=== PATIENT | female | born 1980 | race Caucasian/White ===

== ENCOUNTER 2018-03-31 00:42 | Emergency (ER) | payer BC, SELFPAY ==
[2018-03-31 00:43] VITALS: BP 167/114; PULSE 90; RESP 18; TEMP 36.4; O2SAT 98; BMI 51.5
[2018-03-31] MEDS: 0.9% Normal Saline 1,000 ML 999 ML IV (01:14)
[2018-03-31] MEDS: proCHLORPERazine 10 MG/2 ML Vial IV (01:14)
[2018-03-31] MEDS: DiphenhydrAMINE 50 MG/ML Syringe 25 MG IV (01:14)
--- NOTE | 2018-03-31 02:14 | ED.DCSUM_ITS ---
- ER Visit Summary Date of Service: 03/31/18 Chief Complaint: Headache History of Present Illness: The patient is a 37 F nontraumatic frontal headache with photophobia since this morning. No falls or head injuries. Nausea without vomiting. History of similar. Denies any increased stress. No fevers. No neck pain. Physical Examination: General: Alert and oriented ?3, HEENT: Normocephalic, atraumatic. Moist mucosa membranes. Extraocular muscles intact. No nystagmus Neck: supple, nontender. No meningismus Cardiovascular: Regular rate and rhythm, no murmurs Respiratory: Normal breath sounds, symmetric, no distress Abdomen: Soft, nontender, nondistended Extremities: Nontender, no edema, pulses intact ?4 Neuro: no focal neurological deficits. Cranial nerves II through XII intact. Test Results: [] Emergency Department Course and Treatment: Patient vitals stable, no meningismus. Treated with migraine regimen of Compazine and Benadryl and IV fluids. Reevaluation headache improved she had mild restlessness of lower extremities. No agitation. Discussed with patient can take a Benadryl when she goes home if she is unable to sleep. Patient understands and agrees with plan. Treatment Plan: [] Disposition: Discharge Impression: Migraine headache This note was generated with [employer] dictation software. It may contain incorrect words, spelling, and punctuation that were not noted in review of the chart prior to signing ED Disposition - Plan for ED Patient: Disposition: Home or Assisted Living Chief Complaint: Headache Diagnosis: Migraine headache Instructions: ED Headache Migraine Referrals: Steph Murillo MD [Primary Care Provider] - 3-5 Days
[2018-03-31 02:20] VITALS: BP 140/67; PULSE 66; RESP 18; O2SAT 97
== END 2018-03-31 02:21 | disposition home or self-care (01) ==
PROVIDERS: Emergency Provider Emergency Medicine; Family Provider Internal Medicine; PCP Internal Medicine
DX: G43.909 Migraine, unspecified, not intractable, without status migrainosus (principal); Z72.0 Tobacco use
CPT/HCPCS: 96361; 96374; 96375; 99284

== ENCOUNTER 2018-05-19 20:31 | Emergency (ER) | payer BC, SELFPAY ==
[2018-05-19 20:34] VITALS: BP 124/86; PULSE 84; RESP 17; TEMP 36.3; O2SAT 96; BMI 50.6
--- NOTE | 2018-05-19 22:04 | ED.DCSUM_ITS ---
- ER Visit Summary Date of Service: 05/19/18 Chief Complaint: Right upper molar pain History of Present Illness: The patient is a 38 F no significant past medical history. Patient states she has had right upper molar dental pain for last several days. Denies any trauma. No fever. No facial swelling. Physical Examination: Well-appearing female vital signs are stable afebrile. HEENT exam shows several areas of dental decay and cavities. Her right upper last molar is severely decayed and about half of it is missing with a large cavity. There is no periapical abscess. No trismus. There is tenderness to palpation. There is no facial swelling. Airway is intact. No trouble swallowing or breathing. Neck nontender no lymphadenopathy. Lungs clear to auscultation. Heart regular rhythm no murmur. Otherwise exam unremarkable. Test Results: None Emergency Department Course and Treatment: Marcaine dental block was performed with good results. Patient tolerated well. Given 2 [place] here. Treatment Plan: Motrin for pain. Michael Burton Follow-up with her dentist as soon as possible. Disposition: Discharge Impression: Acute dental pain right upper molar secondary to cavity and decay This note was generated with [employer] dictation software. It may contain incorrect words, spelling, and punctuation that were not noted in review of the chart prior to signing ED Disposition - Plan for ED Patient: Chief Complaint: Dental Referrals: Steph Murillo MD [Primary Care Provider] -
--- NOTE | 2018-05-19 22:04 | ED.DEP ---
ED Disposition - Plan for ED Patient: Disposition: Home or Assisted Living Chief Complaint: Dental Instructions: ED Tooth Pain, ED Cavity Dental Prescriptions: Penicillin Vk [Pen-Vee K 250MG] 250 mg PO 4X/DAY #30 tab Referrals: Donna Oliva [NON-STAFF] - Additional Instructions: Motrin for pain 6-800 mg 3-4 times a day. Ice to your jaw. Follow-up with a dentist as soon as possible. Next Penicillin 4 times a day.
[2018-05-19] MEDS: HYDROcodone Bitartrate/Apap 5/325 Tablet PO (22:15)
[2018-05-19 22:17] VITALS: BP 136/78; PULSE 81; RESP 20; O2SAT 97
[2018-05-19] MEDS: Bupivacaine 0.5%/Epi 1.8 ML Syringe INFILT (22:17)
== END 2018-05-19 22:19 | disposition home or self-care (01) ==
PROVIDERS: Emergency Provider Emergency Medicine; Family Provider Internal Medicine; PCP Internal Medicine
DX: K02.9 Dental caries, unspecified (principal); K08.89 Other specified disorders of teeth and supporting structures
CPT/HCPCS: 64402; 99283

== ENCOUNTER 2019-04-17 08:19 | Observation (INO) | payer BC, SELFPAY ==
[2019-04-17 08:20] VITALS: BP 160/100; PULSE 72; RESP 16; TEMP 36.7; O2SAT 98; BMI 48.9
[2019-04-17] MEDS: Ondansetron 4 MG/2 ML Vial IV (08:55)
[2019-04-17] MEDS: 0.9% Normal Saline 1,000 ML 1000 ML IV (08:55)
[2019-04-17] MEDS: Meclizine HCl 25 MG Tablet PO (09:13)
--- NOTE | 2019-04-17 09:18 | ED.VISSUMM ---
- ER Visit Summary Date of Service: 04/17/19 Chief Complaint: Vertigo History of Present Illness: The patient is a [address] Onofre. Patient reports approximately 30 minutes ago while walking around she had the abrupt onset of vertigo. She reports that this comes and goes. When it comes on she becomes diaphoretic and nauseated. She is vomited 4 times. No blood or emesis. She denies ear pain. No ringing or roaring in her ears. No change in her hearing. No slurred speech. No double vision. No headache. No numbness or weakness. Physical Examination: Vitals: Stable. Afebrile. General: Well-nourished and well-developed. Head: Normocephalic atraumatic. HEENT: TMs are within normal limits bilaterally. Neck: Supple, no lymphadenopathy. No JVD. Nontender. Cardiovascular: Regular rate and rhythm. No murmurs. Respiratory: No respiratory distress. Clear to auscultation bilaterally. Abdominal: Soft, nontender, nondistended, normal bowel sounds. No guarding, rebound, or peritoneal signs. Back: Nontender. Extremities: Nontender, no edema. Skin: Normal color, no rash. Neurologic: Alert and oriented ?3. Cranial nerves II through XII are intact. Normal strength and sensation. Nystagmus with the fast component to the left. Psych: Normal affect. Test Results: test is negative. CT brain shows no acute disease. Emergency Department Course and Treatment: Patient had an IV placed. She was given Zofran and a liter of normal saline. She was given Antivert p.o. she has had no relief. She was given a dose of Ativan IV. She and her talked about the fact that she has had a history of aura without migraine. She was given Toradol, Reglan, and Benadryl IV. She is still not had relief. I did discuss the possibility of an Jason maneuver with the patient and she has refused this. Treatment Plan: Patient remains very symptomatic. She is not able to walk. She will be admitted to the hospital for further evaluation and treatment. Disposition: Admitted in stable condition. Impression: 1. Vertigo, peripheral. This note was generated with [employer] software. It may contain incorrect words, spelling, and punctuation that were not noted in review of the chart prior to signing ED Disposition - Plan for ED Patient: Referrals: Steph Murillo MD [Primary Care Provider] -
[2019-04-17 09:21] VITALS: BP 113/67; PULSE 64; RESP 13; O2SAT 99
[2019-04-17 10:00] LABS: Internal QC Validated? YES +Cl - CLEAR BKGD; Pregnancy, Serum, hCG Quali. NEGATIVE Negative
--- NOTE | 2019-04-17 10:55 | CT_ITS ---
STUDY: CT BRAIN WITHOUT CONTRAST REASON FOR EXAM: Female, 38 years old. Acute onset of vertigo. RADIATION DOSAGE (If Supplied By Facility): CTDIvol = ( 44.99 ) mGy, DLP = ( 796.11 ) mGycm TECHNIQUE: Transaxial CT imaging of the brain was performed without administration of intravenous contrast material. Individualized dose optimization techniques were used for this CT. COMPARISON: No relevant priors. FINDINGS: Normal soft tissue structures. Normal calvarium. Normal size ventricles and extra-axial spaces for the patient's age. Normal white matter tracts of the cerebral hemispheres. Normal basal ganglia and thalami. Normal brainstem. Normal cerebellum. There is no intracranial hemorrhage. There are no findings of an acute ischemic infarction. Minimal mucosal thickening of the right maxillary sinus. CT/Brain/Head without Contrast IMPRESSION: Normal unenhanced CT scan of the brain. Electronically Signed: Darnell Monroe, at 12:16 EDT , Service support ,
[2019-04-17 11:15] VITALS: BP 136/79; PULSE 63; RESP 18; O2SAT 99
[2019-04-17] MEDS: DiphenhydrAMINE 50 MG/ML Syringe 25 MG IV (11:16)
[2019-04-17] MEDS: LORazepam 2 MG/ML Syringe 1 MG IV (11:17)
[2019-04-17] MEDS: Ketorolac 30 MG/ML Syringe IV (11:18)
[2019-04-17] MEDS: Metoclopramide 10 MG/2 ML Vial IV (11:19)
--- NOTE | 2019-04-17 12:54 | NURSING ---
314 OBS VERTIGO SEMENTI
[2019-04-17 13:02] VITALS: BP 141/82; PULSE 67; RESP 16; O2SAT 97
[2019-04-17 13:34] VITALS: BMI 49.0
[2019-04-17 13:36] VITALS: BMI 49.0
[2019-04-17 14:00] VITALS: BP 143/89; PULSE 65; RESP 18; TEMP 36.6; O2SAT 98
[2019-04-17] MEDS: Lactated Ringers 1,000 ML 125 ML IV ×2 (14:00→22:21)
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
[2019-04-17 20:26] VITALS: BP 146/87; PULSE 66; RESP 18; TEMP 36.8; O2SAT 99
[2019-04-18 02:45] VITALS: BP 121/70; PULSE 76; RESP 18; TEMP 36.8; O2SAT 97
[2019-04-18] MEDS: Lactated Ringers 1,000 ML 125 ML IV (06:32)
[2019-04-18 06:38] LABS: Hematocrit 37.4 % (37-47); Hemoglobin 12.4 g/dl (12.0-15.0); Mean Corp Hgb Conc 33.2 g/gl (32-36); Mean Corpuscular Hgb 31.2 pg (27.0-32.0); Mean Platelet Vol. 10.6 fl (6.2-12.0); Platelet Count 265 K/mm3 (150-450); RBC Distribution Width CV 13.5 % (11.6-14.6); RBC Distribution Width SD 44.9 fl (35.1-43.9); Red Blood Count 3.98 M/mm3 (4.2-5.4); White Blood Count 13.2 K/mm3 (4.4-11.0)
[2019-04-18 06:42] LABS: Scan Indicated on CBC? Y/N NO
[2019-04-18 06:56] LABS: ALB/GLOB Ratio 0.9 RATIO (0.9-2.4); AST(SGOT) 17 U/L (15-37); Alanine Aminotransfer ALT/SGPT 25 U/L (13-56); Albumin, Serum 2.8 g/dL (3.2-5.0); Alkaline Phosphatase 88 U/L (45-117); Anion Gap 9 (5-15); BUN 9 mg/dL (7-18); BUN/Creat Ratio 13.7 RATIO (10-20); Calcium,Total 8.3 mg/dL (8.5-10.1); Chloride 109 mmol/L (98-107); Cholesterol 179 mg/dL (200); Creatinine, Serum 0.66 mg/dL (0.55-1.02); EST Glomerular Filtration Rate 106 mL/min (>60); Est Glom Filt Rate - Afr Amer 128 mL/min (>60); Estimated Creatinine Clearance 98.82 ml/min; Globulin 3.1 g/dL (2.2-4.2); Glucose 89 mg/dL (74-106); High Density Lipoprotein 33 mg/dL; Potassium 3.7 mmol/L (3.5-5.1); Protein, Total 5.9 g/dL (6.4-8.2); Sodium Level 142 mmol/L (136-145); Triglycerides 110 mg/dL; Very Low Density Lipoprotein 22 mg/dL (5-40)
[2019-04-18 09:37] VITALS: BP 132/78; PULSE 71; RESP 16; TEMP 36.7; O2SAT 96
[2019-04-18] MEDS: Enoxaparin 40 MG/0.4 ML Syringe SC (09:59)
--- NOTE | 2019-04-18 11:35 | PCM.WORK.EX ---
Work/School Excuse Please excuse this person from:: Work From: 04/17/19 through: 04/22/19
--- NOTE | 2019-04-18 11:36 | DCINST_ITS ---
- Discharge Diagnoses Current Active Problems: Current Active and Chronic Problems Acute onset of severe vertigo (Acute) Morbid obesity with BMI of 45.0-49.9, adult (Chronic) History of migraine with aura (Chronic) Tobacco dependence (Chronic) You will use the following diet at home:: No restrictions Your food should be the consistency of: Regular Your liquids should be the consistency of: Regular/Thin Discharge Activity: - - May not drive while taking Valium. Avoid activities bryanna require you to change head position quickly. Stay well hydrated. Return to work on:: 04/23/19 May resume sexual activity in: No Restrictions Call your doctor if you observe: Fever of 101 or Higher, - - recurrent nausea or vomiting, increasing vertigo and difficulty walking Instructions: The Inner Ear: Understanding the Balance System, Inner Ear Problems: Causes of Dizziness (Vertigo), Tips for Quitting Smoking (Cardiovascular), Why Do You Smoke?, Planning to Quit Smoking, Getting Support for Quitting Smoking Additional Instructions: 1. take the valium 3 times a day for the next 48 hours and after that you can take every 6 hours as needed for vertigo. 2. I have given you a prescription for Phenergan tablets. This medication is for nausea. It makes you sleepy so do not drive while taking Phenergan or Valium. 3. I am giving you a referral to go to [employer] for vestibular training. 4. No work unitil Tuesday. 5. your lab all looked pretty good. 6. It would be in your best interest to quit smoking. I have given you some literature to read about quitting and help available if you are unable to quit on your own........you want to live to see your grandbabies! 7. I faxed your prescriptions to the pharmacy in the hospital so you would have them in your hand when you leave the hospital so you don't have to stop on the way home. 8.. Pleasure meeting you......you have a great personality! Pending Tests on Discharge: none Allergies/Adverse Reactions: Allergies No Known Allergies Allergy (Verified 04/17/19 13:44) Medications to take at Discharge Diazepam [Valium] 2 mg PO TID PRN 7 Days #15 tablet 04/18/19 proMETHazine tablet [Phenergan tablet] 25 mg PO Q6H PRN PRN #12 tab 04/18/19 The following prescriptions were given: proMETHazine tablet [Phenergan tablet] 25 mg PO Q6H PRN PRN #12 tab PRN Reason: nausea and/or vomiting Transmission Status: Pending to [facility] Diazepam [Valium] 2 mg PO TID PRN 7 Days #15 tablet Transmission Status: Sent to [facility] Orders to be completed after discharge: Physical Therapy Evaluation Location: None Selected Primary Care Physician: Steph Murillo MD [STAFF PHYSICIAN] - Test Results: Test results from this visit will be discussed in further detail at your follow- up appointment, if applicable. Please Follow Up With: Yanira Onofre MD When: has an appt coming up Proposed Discharge Date: 04/18/19
--- NOTE | 2019-04-18 11:47 | DS.PCM_ITS ---
Discharge Date and Diagnosis - Problem List Patient Problems: Active and Suspected Problems Acute onset of severe vertigo (Acute) Date of Admission: 04/17/19 Date of Discharge: 04/18/19 - Primary Discharge Diagnosis Active and Suspected Problems Acute onset of severe vertigo (Acute) due to BPPV BPPV - Secondary Discharge Diagnosis Chronic Problems Morbid obesity with BMI of 45.0-49.9, adult (Chronic) History of migraine with aura (Chronic) Tobacco dependence (Chronic) Hospital Course and Treatment Imaging Results: Clinical Impression(s) from Imaging Studies Brain CT 04/17/19 10:55 IMPRESSION: Normal unenhanced CT scan of the brain. Electronically Signed: Darnell Monroe, at 12:16 EDT , Service support , Laboratory Tests 04/18/19 04/18/19 04/17/19 Range/Units 05:36 05:36 09:35 WBC 13.2 H (4.4-11.0) K/mm3 RBC 3.98 L (4.2-5.4) M/mm3 Hgb 12.4 (12.0-15.0) g/dl Hct 37.4 (37-47) % MCV 94.0 (81-99) fL MCH 31.2 (27.0-32.0) pg MCHC 33.2 (32-36) g/gl RDW 13.5 (11.6-14.6) % RDW Differential 44.9 H (35.1-43.9) fl Plt Count 265 (150-450) K/mm3 MPV 10.6 (6.2-12.0) fl Sodium 142 (136-145) mmol/L Potassium 3.7 (3.5-5.1) mmol/L Chloride 109 H (98-107) mmol/L Carbon Dioxide 24.0 (21.0-32.0) mmol/L Anion Gap 9 (5-15) BUN 9 (7-18) mg/dL Creatinine 0.66 (0.55-1.02) mg/dL Estim Creat Clear Calc 98.82 ml/min Est GFR (MDRD) Af Amer 128 (>60) mL/min Est GFR (MDRD) Non-Af 106 (>60) mL/min BUN/Creatinine Ratio 13.7 (10-20) RATIO Glucose 89 (74-106) mg/dL Calcium 8.3 L (8.5-10.1) mg/dL Total Bilirubin 0.30 (0.20-1.00) mg/dL AST 17 (15-37) U/L ALT 25 (13-56) U/L Alkaline Phosphatase 88 (45-117) U/L Total Protein 5.9 L (6.4-8.2) g/dL Albumin 2.8 L (3.2-5.0) g/dL Globulin 3.1 (2.2-4.2) g/dL Albumin/Globulin Ratio 0.9 (0.9-2.4) RATIO Triglycerides 110 ( - 199) mg/dL Cholesterol 179 (200) mg/dL LDL Cholesterol 124 (0-130) mg/dL VLDL Cholesterol 22 (5-40) mg/dL HDL Cholesterol 33 L (40 - ) mg/dL Serum , Qual NEGATIVE Negative none Operations: None Procedures: None Summary of Care Provided: The patient is a 38 year old F with a past medical history of migraines with aura, morbid obesity and tobacco dependence who presented to the ED at [facility] on 04/17/2019 complaining of abrupt onset of vertigo associated with diaphoresis, nausea and vomiting. She denied ear pain, sore throat, nasal congestion, recent head trauma, history of CVA or prior episodes of vertigo. She is not on control pills. Vital signs at presentation to the emergency department were temperature 98, pulse rate 72, blood pressure 160/100, respiratory rate 16 and she was 98 to 99% saturated on room air. test was negative. Noncontrasted CT brain was normal. She was given Benadryl, Toradol, Ativan, Antivert, Reglan and Zofran in the emergency department but her symptoms persisted. She was admitted to the hospital for suspected BPPV. She was ordered Meclizine and Valium as needed for symptomatic vertigo. IV fluids were ordered. She was seen by PT but, they were unable to teach her Appley's maneuvers because she was afraid it would make her worse. On the morning of 04/18/2019 the patient was afebrile with stable vital signs. She was able to ambulate in the rodriguez without recurrent N/V or vertigo. Nystagmus had resolved. She tolerated breakfast well. She was discharged home with a Prescription for Valium 2 mg and instructed to take 1 tab TID for 48 H and then start PRN every 6 H for vertigo. She was also give a RX for Phenergan if she has recurrent N/V. She has a follow up appt with Dr. Onofre. Smoking cessation was advised and counselling was given in the hospital. This note was generated with [employer] dictation software. It may contain incorrect words, spelling, and punctuation that were not noted in checking the note before signing. Patient Problems: Active and Suspected Problems Acute onset of severe vertigo (Acute) - Physical Exam Vital Signs Temp Pulse Resp BP Pulse Ox 98.1 F 71 16 132/78 H 96 04/18/19 09:37 04/18/19 09:37 04/18/19 09:37 04/18/19 09:37 04/18/19 09:37 Oxygen Delivery Method Room Air Weight: 285 lb 7.978 oz Body Mass Index (BMI) 49.0 Intake and Output for Last 24 Hours 04/16/19 04/17/19 04/18/19 23:59 23:59 23:59 Intake Total 860 / 1957 1808 / 1808 Output Total 300 / 550 1100 / 1100 Balance 560 / 1407 708 / 708 Laboratory Tests Past 24 Hrs 04/18/19 04/18/19 05:36 05:36 WBC 13.2 H RBC 3.98 L Hgb 12.4 Hct 37.4 MCV 94.0 MCH 31.2 MCHC 33.2 RDW 13.5 RDW Differential 44.9 H Plt Count 265 MPV 10.6 Sodium 142 Potassium 3.7 Chloride 109 H Carbon Dioxide 24.0 Anion Gap 9 BUN 9 Creatinine 0.66 Estim Creat Clear Calc 98.82 Est GFR (MDRD) Af Amer 128 Est GFR (MDRD) Non-Af 106 BUN/Creatinine Ratio 13.7 Glucose 89 Calcium 8.3 L Total Bilirubin 0.30 AST 17 ALT 25 Alkaline Phosphatase 88 Total Protein 5.9 L Albumin 2.8 L Globulin 3.1 Albumin/Globulin Ratio 0.9 Triglycerides 110 Cholesterol 179 LDL Cholesterol 124 VLDL Cholesterol 22 HDL Cholesterol 33 L Discharge Activity: - - May not drive while taking Valium. Avoid activities bryanna require you to change head position quickly. Stay well hydrated. Return to work on:: 04/23/19 May resume sexual activity in: No Restrictions Call your doctor if you observe: Fever of 101 or Higher, - - recurrent nausea or vomiting, increasing vertigo and difficulty walking Home Medications: Medications to take at Discharge Diazepam [Valium] 2 mg PO TID PRN 7 Days #15 tablet 04/18/19 proMETHazine tablet [Phenergan tablet] 25 mg PO Q6H PRN PRN #12 tab 04/18/19 Following Prescrptions Were Given to Patient: proMETHazine tablet [Phenergan tablet] 25 mg PO Q6H PRN PRN #12 tab PRN Reason: nausea and/or vomiting Transmission Status: Pending to [facility] Diazepam [Valium] 2 mg PO TID PRN 7 Days #15 tablet Transmission Status: Sent to [facility] Other Amb Orders: Physical Therapy Evaluation Location: None Selected Primary Care Physician: Steph Murillo MD [STAFF PHYSICIAN] - Please Follow Up With: Yanira Onofre MD When: has an appt coming up Patient Instructions: Tips for Quitting Smoking (Cardiovascular), Why Do You Smoke?, Planning to Quit Smoking, Getting Support for Quitting Smoking, The Inner Ear: Understanding the Balance System, Inner Ear Problems: Causes of Dizziness (Vertigo) Disposition: Home Minutes spent on discharge:: 25 Patient Condition:: Good Medical Necessity - Tobacco Use Smoking Status: Current every day smoker Tobacco Use: Cigarettes Meaningful Use Info Meaningful Use Diagnoses (Choose all that apply): None applicable Code Visit OBSV E&M: 03018 Observation care discharge
[2019-04-18 13:05] VITALS: BP 152/98; PULSE 75; RESP 18; TEMP 36.7; O2SAT 98
== END 2019-04-18 13:10 | disposition home or self-care (01) ==
LOC: ED 09:12 → MS3 13:07
PROVIDERS: Admitting Provider Internal Medicine; Emergency Provider Emergency Medicine; Referring Provider Internal Medicine; Visit Provider Internal Medicine
DX: H81.10 Benign paroxysmal vertigo, unspecified ear (principal); E66.01 Morbid (severe) obesity due to excess calories; Z68.42 Body mass index [BMI] 45.0-49.9, adult; Z71.3 Dietary counseling and surveillance; F17.210 Nicotine dependence, cigarettes, uncomplicated
CPT/HCPCS: 36415; 70450; 80053; 80061; 84703; 85027; 96361; 96372; 96374; 96375; 97161; 97530; 99218; 99285; 99406; J7030; J7120; A4216; G0378; J2405

== ENCOUNTER 2019-07-08 20:22 | Emergency (ER) | payer BC, SELFPAY ==
[2019-07-08 20:23] VITALS: BP 206/99; PULSE 73; RESP 16; TEMP 36.1; O2SAT 99; BMI 51.8
--- NOTE | 2019-07-08 20:43 | ED.VISSUMM ---
- ER Visit Summary Date of Service: 07/08/19 Chief Complaint: [Dental pain] History of Present Illness: The patient is a 39 F [presents to the emergency department complaint dental pain x3 days. Patient states that she has several broken teeth. She try to make an appointment with a dentist but can be seen for 2 months. Patient complains of hot cold sensitivity. Complains of pain with breathing. Has any chest pain or shortness of breath. Any trauma. She denies any fevers.] Physical Examination: [HEENT-PERRLA, EOMI. Cranial nerves II through XII grossly intact. TMs clear. Mucous membranes moist. No adenopathy. Dentition-patient does have broken and carried left lower third molar as well as left upper third molar. Teeth are tender to palpation. No gingival erythema or abscess noted. No cellulitis or facial swelling noted. No adenopathy. Cardiovascular-regular rate and rhythm without murmur or ectopy Lungs-clear to auscultation, chest wall stable without crepitus or subcu emphysema Abdomen-normoactive bowel sounds, soft, nontender, no rebound or rigidity, no peritoneal signs. Extremities-intact ?4, normal range of motion, normal pulses, atraumatic] Test Results: [None indicated] Emergency Department Course and Treatment: [Patient was medicated with oxacillin and given a prescription for Pax. She was given a list of dentists in the area.] Treatment Plan: [Follow-up with dentist. Patient given a prescription for Pax and amoxicillin.] Disposition: [Discharged home stable condition] Impression: [Dental pain secondary dental caries] This note was generated with [employer] dictation software. It may contain incorrect words, spelling, and punctuation that were not noted in review of the chart prior to signing ED Disposition - Plan for ED Patient: Referrals: Yanira Onofre MD [Primary Care Provider] -
--- NOTE | 2019-07-08 20:46 | ED.DEP ---
ED Disposition - Plan for ED Patient: Instructions: Dental Pain, Dental Cavity Prescriptions: Amoxicillin 500 mg PO TID #30 tab Prescription Printed Hydrocodone Bitart/Apap 5-325 [[place] 5MG-325MG] 1 tab PO Q4H PRN PRN 2 Days #15 tab PRN Reason: Pain Prescription Printed Referrals: Yanira Onofre MD [Primary Care Provider] - Additional Instructions: see a dentist
[2019-07-08] MEDS: AMOXICILLIN 500 MG CAPSULE PO (20:54)
== END 2019-07-08 20:57 | disposition home or self-care (01) ==
LOC: ED 20:34
PROVIDERS: Emergency Provider Emergency Medicine; Family Provider Internal Medicine; PCP Internal Medicine
DX: K02.9 Dental caries, unspecified (principal); K08.89 Other specified disorders of teeth and supporting structures; Z72.0 Tobacco use
CPT/HCPCS: 99283

== ENCOUNTER 2023-10-17 22:03 | Emergency (ER) | payer OTHER, SELFPAY ==
[2023-10-17 22:04] VITALS: BP 143/72; PULSE 76; RESP 18; TEMP 36.2; O2SAT 99; BMI 54.3
[2023-10-17 22:21] VITALS: BP 145/76; PULSE 68; RESP 16; O2SAT 100
--- NOTE | 2023-10-17 22:21 | EKG12_ITS ---
Test Reason : CP Blood Pressure : / mmHG Vent. Rate : 078 BPM Atrial Rate : 078 BPM P-R Int : 172 ms QRS Dur : 080 ms QT Int : 394 ms P-R-T Axes : 057 009 047 degrees QTc Int : 449 ms Normal sinus rhythm with sinus arrhythmia Possible Inferior infarct , age undetermined Abnormal ECG Confirmed by MARIBEL SAGASTUME, STEPHY ([id number]), online editor TRAVON BROWN ([id number]) on 10/19/2023 5:56:52 AM Referred By: RODNEY Confirmed By:STEPHY LÓPEZ MD
--- NOTE | 2023-10-17 22:22 | ED.VIS.CHEST ---
HPI History of Present Illness Chief Complaint: Chest Pain Informant: patient Onset/Context/Timing Onset: Days Activity at onset: gradual Timing: Waxes and wanes Quality: Positive for Stabbing Location: Right Parasternal Current Severity: Mild Maximum Severity: Moderate Narrative Narrative: Patient presents secondary to sharp right parasternal chest pain that has been ongoing for the past 2 or 3 days. She states it is worse when she takes a deep breath but she does not practically feel short of breath. She has not had recent URI symptoms. No chest trauma. She states tonight she was at a [employer] and noted the pain was worse. When she got home she belched and thought the pain was better. She has been drinking Mountain Dew trying to make herself belch which she states will help for short time but then the pain builds up again. She states she still has the right parasternal pain that is worse with deep breath and that has been more of a constant pain. [facility] Medical History History of migraine with aura Lower extremity edema Vertigo Home Medications promethazine 25 mg tablet 25 mg PO Q6H PRN PRN nausea and/or vomiting #12 tabs 04/18/19 [Rx Last Taken Unknown] amoxicillin 500 mg tablet 500 mg PO TID #30 tabs 07/08/19 [Rx Last Taken Unknown] omeprazole 40 mg capsule,delayed release 40 mg PO DAILY 4 weeks #28 caps 10/17/23 [Rx Last Taken Unknown] prednisone 20 mg tablet 40 mg (2 x 20 mg) PO DAILY #8 tabs 10/17/23 [Rx Last Taken Unknown] Allergy/AdvReac Type Severity Reaction Status Date / Time No Known Allergies Allergy Verified 10/17/23 22:04 Social History Smoking Status: Current some day smoker tobacco type: cigarettes ROS ROS ED Constitutional Constitutional ED: Denies chills or fever(s) Eyes Eyes: Denies discharge from eye(s) ENT ENT ED: Denies discharge from eye(s), rhinorrhea or sore throat Cardiovascular Cardiovascular: Reports chest pain; Denies palpitations Respiratory/Chest Respiratory/Chest: Denies cough or dyspnea Gastrointestinal Gastrointestinal: Denies abdominal pain, nausea or vomiting Genitourinary Genitourinary ED: Denies dysuria Musculoskeletal Musculoskeletal: Denies back pain or extremity pain Integumentary Denies Abrasions or rash Neurologic Neurologic: Denies headache(s) or weakness Psychiatric Psychiatric: Denies anxiety or depression Allergic/Immunologic Allergic/Immunologic ED: Denies lip swelling or urticaria EXAM Physical Exam Const Vital Signs: 10/17/23 22:04 10/17/23 22:21 10/17/23 22:21 Temperature 97.1 F L Temperature Source Temporal Pulse Rate 76 Respiratory Rate 18 Respiratory Effort Normal Respiratory Pattern Normal Blood Pressure 143/72 H Blood Pressure Mean 95 Pulse Ox 99 Oxygen Delivery Method Room Air Room Air 10/17/23 22:21 10/17/23 23:03 Temperature Temperature Source Pulse Rate 68 74 Respiratory Rate 16 16 Respiratory Effort Respiratory Pattern Blood Pressure 145/76 H 143/66 H Blood Pressure Mean 99 91 Pulse Ox 100 99 Oxygen Delivery Method Room Air Positive well nourished and well developed General Appearance ED: well developed HEENT Reports normocephalic and head/scalp atraumatic Eyes PERRL and EOMs intact bilaterally Neck supple Chest Wall inspection of chest normal and palpation of chest normal Resp normal respiratory effort and clear to auscultation bilaterally Cardio regular rate and regular rhythm GI soft to palpation Palpation: soft Extremity normal to inspection Neuro oriented x3 and no sensory deficits noted Sensorium / Orientation: alert Motor Exam: strength 5/5 throughout Psych mental status grossly normal Skin no rashes or lesions noted Heart Score History: Slightly/Non-Suspicious ECG: Normal Age: </= 45 years Risk Factors: No Risk Factors Troponin: </= Normal Limit Score: 0 MDM MDM MDM Narrative Medical decision making narrative: 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 EKG obtained to evaluate for cardiac arrhythmia/ischemia. Chest x-ray obtained to evaluate for acute lung pathology, cardiac size, or mediastinal abnormality. Labwork obtained to evaluate for leukocytosis, anemia, and electrolyte derangement. Patient given aspirin along with a dose of Protonix given her GI symptoms. History & Record Review Discussion w/independent historian: Patient Lab Data Attestation: I reviewed the patient's lab results. Labs: Laboratory Results - last 24 hr 10/17/23 22:40 WBC 11.8 H RBC 4.08 L Hgb 12.9 Hct 38.6 MCV 94.6 MCH 31.6 MCHC 33.4 RDW Std Deviation 44.8 H RDW Coeff of Chitra 12.9 Plt Count 390 MPV 9.7 Immature Gran % (Auto) 0.300 Neut % (Auto) 60.0 Lymph % (Auto) 31.2 Coos % (Auto) 7.2 Eos % (Auto) 0.8 Baso % (Auto) 0.5 Absolute Neuts (auto) 7.1 Absolute Lymphs (auto) 3.69 Nucleated RBC % 0 D-Dimer Quant (PE/DVT) 0.45 Sodium 141 Potassium 3.3 L Chloride 108 H Carbon Dioxide 28.0 Anion Gap 5 BUN 12 Creatinine 0.89 Estim Creat Clear Calc 69.66 Est GFR (MDRD) Af Amer 88 Est GFR (MDRD) Non-Af 73 BUN/Creatinine Ratio 13.4 Glucose 98 Calcium 9.3 Troponin I High Sens 7 Serum , Qual NEGATIVE Radiography Chest X-Ray - ED: 1 View, Read by ED Physician, Normal, Heart, Lungs and Mediastinum Diagnostic Testing: Clinical Impression(s) from Imaging Studies Chest X-Ray 10/17/23 22:55 IMPRESSION: 1. No radiographic evidence of acute cardiopulmonary disease. Electronically Signed: Lake Mensah DO at 23:39 EST , EKG Initial EKG: Attestation: I personally reviewed and interpreted this EKG as follows: Interpretation: Sinus Rhythm (Sinus at 78 with no acute ischemia.) Treatment and Re-Evaluation :: CBC and chemistry studies are remarkable for slightly elevated white count of 11.8 with normal differential. Hemoglobin is normal at 12.9. Potassium is slightly low at 3.3 this is replaced orally. Troponin is normal at 7 and test is negative. D-dimer is normal at 0.45. EKG is sinus rhythm with no evidence of acute ischemia. Portable chest x-ray per my interpretation reveals no acute abnormalities. Test results discussed with patient and family at bedside. I do believe a lot of her symptoms are secondary to costochondritis given the sharp pain at the right sternal border worse with deep breath. I will place her on a short burst of steroids. I will also put her on Prilosec to help with stomach protection of the steroids as well as to help with her increased belching. She has an appointment with her PCP in 4 days for follow-up. Return instructions are given. Discharge Plan Triage Chief Complaint: Chest Pain ED Provider: Bonnie Carrasquillo Dx/Rx/DC Orders Clinical Impression: Costochondritis, Hypokalemia Instructions: ED Chest Wall Pain, Costochondritis, ED Hypokalemia Prescriptions: New prednisone 20 mg tablet 40 mg PO DAILY Qty: 8 0RF omeprazole 40 mg capsule,delayed release(DR/EC) 40 mg PO DAILY 28 Days Qty: 28 0RF No Action promethazine 25 MG tablet 25 mg PO Q6H PRN PRN (Reason: nausea and/or vomiting) Qty: 12 0RF amoxicillin 500 MG tablet 500 mg PO TID Qty: 30 0RF Primary Care Provider: Yanira Onofre Referrals: Yanira Onofre MD [Primary Care Provider] - [facility] appointment Disposition Disposition: Home, Self Care Discharge Date/Time: 10/17/23 23:55
[2023-10-17 22:52] LABS: Absolute Lymphocyte Count 3.69 X10^3/uL (0.83-4.51); Absolute Neutrophil Count 7.1 X10^3/uL (2.0-7.7); Basophil# 0.06 X10^3/uL; Basophil% 0.5 % (0-1); Eosinophils% 0.8 % (0-5); Hematocrit 38.6 % (37-47); Hemoglobin 12.9 g/dL (12.0-15.0); Lymphocyte # 3.69 X10^3/ul (0.83-4.51); Lymphocyte % 31.2 % (19-41); Mean Corp Hgb Conc 33.4 g/dL (32-36); Mean Corpuscular Hgb 31.6 pg (27.0-32.0); Mean Corpuscular Volume 94.6 fL (81-99); Mean Platelet Vol. 9.7 fl (6.2-12.0); Monocyte# 0.85 X10^3/uL; Monocyte% 7.2 % (0-10); NRBC Flagged by Analyzer 0 % (0-5); Neutrophil # 7.09 X10^3/uL (2.7-7.7); Platelet Count 390 K/mm3 (150-450); RBC Distribution Width CV 12.9 % (11.6-14.6); RBC Distribution Width SD 44.8 fl (35.1-43.9); Red Blood Count 4.08 M/mm3 (4.2-5.4); White Blood Count 11.8 K/mm3 (4.4-11.0)
[2023-10-17] MEDS: 0.9% Normal Saline (1000mL) 1,000 ML 150 ML IV (22:52)
[2023-10-17] MEDS: Aspirin 81 MG TAB.CHEW 324 MG PO (22:52)
[2023-10-17] MEDS: Pantoprazole Sodium 40 MG in 0.9% Normal Saline (100mL MB+) 100 ML 330 MG IV (22:52)
--- NOTE | 2023-10-17 22:55 | RAD_ITS ---
INDICATION: chest pain EXAMINATION/TECHNIQUE: X-RAY - XR Chest 1 View COMPARISON: No relevant prior comparison studies available. FINDINGS: LINES/DEVICES: None. LUNGS: Symmetric normal lung volumes. No airspace opacity or abnormal interstitial pattern. No nodule or mass. No pleural effusion or pneumothorax. MEDIASTINUM AND CARDIOVASCULAR STRUCTURES: Normal size and contour of the cardiomediastinal silhouette. No evidence of pulmonary vascular congestion. BONES AND SOFT TISSUES: No fracture or focal osseous lesion. RAD/Chest 1 View (Portable) IMPRESSION: 1. No radiographic evidence of acute cardiopulmonary disease. Electronically Signed: Lake Mensah DO at 23:39 EST ,
[2023-10-17 23:03] VITALS: BP 143/66; PULSE 74; RESP 16; O2SAT 99
[2023-10-17 23:07] LABS: Internal QC Validated? YES +Cl - CLEAR BKGD; Pregnancy, Serum, hCG Quali. NEGATIVE Negative
[2023-10-17 23:08] LABS: D-Dimer Quantitative (DVT/PE) 0.45 FEU/ug/m (0.27-0.49)
[2023-10-17 23:12] LABS: Anion Gap 5 (5-15); BUN 12 mg/dL (7-18); BUN/Creat Ratio 13.4 RATIO (10-20); Calcium,Total 9.3 mg/dL (8.5-10.1); Chloride 108 mmol/L (98-107); Creatinine, Serum 0.89 mg/dL (0.55-1.02); EST Glomerular Filtration Rate 73 mL/min (>60); Est Glom Filt Rate - Afr Amer 88 mL/min (>60); Estimated Creatinine Clearance 69.66 ml/min; Glucose 98 mg/dL (74-106); Potassium 3.3 mmol/L (3.5-5.1); Sodium Level 141 mmol/L (136-145); Troponin-I HS 7 pg/mL (3.0-54.0)
[2023-10-17] MEDS: Potassium Chloride Oral Tablet 20 MEQ 40 MEQ PO (23:49)
[2023-10-17] MEDS: predniSONE 20 MG Tablet 40 MG PO (23:49)
== END 2023-10-17 23:55 | disposition home or self-care (01) ==
PROVIDERS: Emergency Provider Emergency Medicine; PCP Internal Medicine; Visit Provider Emergency Medicine
DX: M94.0 Chondrocostal junction syndrome [Tietze] (principal); E87.6 Hypokalemia; Z79.52 Long term (current) use of systemic steroids; F17.210 Nicotine dependence, cigarettes, uncomplicated
CPT/HCPCS: 71045; 80048; 84484; 84703; 85025; 85379; 93005; 96365; 99285; J7030; A4216

== ENCOUNTER 2025-04-03 18:11 | Emergency (ER) | payer OTHER, SELFPAY ==
[2025-04-03 18:12] VITALS: BP 149/114; PULSE 94; RESP 18; TEMP 36.2; O2SAT 98
--- NOTE | 2025-04-03 19:00 | RAD_ITS ---
PROCEDURE: KNEE 4 OR MORE VIEWS 04/03/2025 REASON FOR EXAM: PAIN TECHNIQUE: Four views of the right knee COMPARISON: None RAD/Knee 4 or More Views IMPRESSION: Patellar orthopedic pins are noted. Mild degenerative changes of the right kne e. Mild joint effusion. Mild diffuse soft tissue edema. No acute fracture or dislocations. Small fabella is noted. Reading Location: [id number]
--- NOTE | 2025-04-03 20:51 | ED.VIS.LOWEX ---
HPI History of Present Illness HPI Narrative: 44-year-old female prior right knee patella fracture. She works at the [employer]. She slipped on some wax paper on the floor landed on her right knee causing pain. No other complaints. No head injury. Chief Complaint: Lower Extremity Injury Informant: patient Occured/Mechanism Mechanism/Context: Yes injury and Yes blunt trauma Onset/Context/Timing Onset: Today Context: Sudden Onset Timing: Continuous Quality of Pain: Sharp Current Severity: Moderate Maximum Severity: Moderate Associated Symptoms Associated Symptoms: Negative for Parasthesia, Weakness or Loss of Funtion Narrative Narrative: 44-year-old female Worker's Comp. injury. Slipped on wax paper at a grocery store injuring her right knee. Prior history of patella fracture with screws. Denies other complaints. Prior similar symptoms: Yes Recent Illness/Hospitalization: No PFSH PFSH Medical History Lower extremity edema Vertigo History of migraine with aura Home Medications ?Medication ?Instructions ?Recorded ?Last Taken ?Type promethazine 25 mg tablet 25 mg PO Q6H PRN PRN nausea and/or 04/18/19 Unknown Rx vomiting #12 tabs amoxicillin 500 mg tablet 500 mg PO TID #30 tabs 07/08/19 Unknown Rx omeprazole 40 mg capsule,delayed 40 mg PO DAILY 4 weeks #28 caps 10/17/23 Unknown Rx release prednisone 20 mg tablet 40 mg (2 x 20 mg) PO DAILY #8 tabs 10/17/23 Unknown Rx Allergy/AdvReac Type Severity Reaction Status Date / Time No Known Allergies Allergy Verified 04/03/25 18:12 Social History Smoking Status: Current some day smoker tobacco type: cigarettes ROS ROS ED ROS Narrative Denies recent illness. Constitutional Constitutional ED: Denies chills or fever(s) Eyes Eyes: Denies blurry vision ENT ENT ED: Denies ear pain Cardiovascular Cardiovascular: Denies chest pain Respiratory/Chest Respiratory/Chest: Denies cough or dyspnea Gastrointestinal Gastrointestinal: Denies abdominal pain Genitourinary Genitourinary ED: Denies dysuria or hematuria Musculoskeletal Musculoskeletal: Denies arthralgias or back pain Integumentary Denies abscess or Abrasions Neurologic Neurologic: Denies headache(s) Psychiatric Psychiatric: Denies anxiety or depression Endocrine Endocrinology: Denies polydipsia Hematologic/Lymphatic Hematologic/Lymphatic: Denies easy bleeding, easy bruising or lymphadenopathy Allergic/Immunologic Allergic/Immunologic ED: Denies mouth swelling, tongue swelling or urticaria EXAM Physical Exam Narrative Exam Narrative: 44-year-old female vital signs are stable afebrile. Initial blood pressure is elevated at 149/114. H EENT exam pupils round reactive light. No signs of trauma to her face or scalp. Nontender. Neck nontender. Back nontender. Lungs clear to auscultation. Heart regular rhythm rate about 90 no murmur. Chest wall ribs nontender. Abdomen soft nontender. Pelvic girdle intact. Both upper extremities nontender normal range of motion and medical biller/coder strength. Left lower extremity is nontender with normal dorsi plantarflexion range of motion. Right lower extremity right hip ankle and foot nontender. Normal dorsi plantarflexion. Normal touch sensation. Knee tender. Well-healed surgical incision. No effusion. ACL PCL MCL LCL appear to be intact. She is able to do flexion extension with some discomfort but can extend 280 degrees. There is no effusion. Neurologically she is awake alert. Answering questions and following commands. Const Vital Signs: 04/03/25 18:12 Temperature 97.1 F L Temperature Source Temporal Pulse Rate 94 Respiratory Rate 18 Blood Pressure 149/114 H Blood Pressure Mean 125 Pulse Ox 98 Oxygen Delivery Method Room Air Positive well nourished and well developed; Negative for cachectic, contractures or unkempt General Appearance ED: well developed and NAD; Negative for unkempt, cachectic or contractures Nutritional Appearance: Negative for cachectic HEENT Reports moist mucous membranes normocephalic and atraumatic; Negative for trauma or tenderness Eyes PERRL Neck full ROM and supple Thyroid: Negative for tender Chest Wall inspection of chest normal and palpation of chest normal Resp normal respiratory effort, no retractions and clear to auscultation bilaterally Cardio regular rate, regular rhythm, S1 normal heart sound, S2 normal heart sound and no murmurs Rate: Negative for bradycardia or tachycardic Rhythm: Negative for abnormal rhythm GI non-tender, non-distended and no masses Palpation: soft; Negative for tender, guarding or rebound tenderness present Back/Spine no CVA tenderness General Back: Negative for CVA tenderness Cervical Spine: Negative for cervical spine tenderness Thoracic Spine / Upper Back: Negative for thoracic spinal tenderness Lumbar Spine / Lower Back: Negative for lumbar spinal tenderness Extremity normal to inspection and full ROM Extremity Narrative: Except tenderness to right knee. Well-healed surgical incision. No effusion. ACL PCL intact. MCL and LCL intact. Able to flex and extend the knee. Extensor mechanism intact 280 degrees. Right hip, ankle and foot nontender. Normal dorsi plantarflexion. Normal touch sensation. Neuro oriented x3, CN's II-XII intact bilaterally and moves all extremities Sensorium / Orientation: alert, oriented to person, oriented to place and oriented to time; Negative for orientation impaired Motor Exam: strength 5/5 throughout Psych mental status grossly normal Appearance: Negative for unkempt Skin no wounds Lesions: no lesions Rashes: no rashes MDM MDM MDM Narrative Medical decision making narrative: 44-year-old female Worker's Comp. injury fell injured her right knee. X-ray shows chronic changes. Arthritis. Prior orthopedics repair of patella fracture with hardware. No acute fracture. No dislocation. No significant effusion. She be discharged home. Ice, Motrin and Tylenol. Follow-up with orthopedic surgeon as needed. History & Record Review Discussion w/independent historian: Patient Additional record(s) reviewed:: Prior inpatient record, Prior outpatient record, Prior ED visit and Prior labs Radiography Diagnostic Testing: Clinical Impression(s) from Imaging Studies Knee X-Ray 04/03/25 19:00 IMPRESSION: Patellar orthopedic pins are noted. Mild degenerative changes of the right knee. Mild joint effusion. Mild diffuse soft tissue edema. No acute fracture or dislocations. Small fabella is noted. Reading Location: [facility] Right knee x-ray, 4 views, interpreted by myself and radiologist. Chronic changes. Prior patella fracture surgically repaired with screws. No acute fracture. No dislocation. No significant effusion. Discharge Plan Triage Chief Complaint: Lower Extremity Injury ED Provider: Krishna Rios Dx/Rx/DC Orders Clinical Impression: Fall, Contusion of right knee, Encounter related to worker's compensation claim, History of patellar fracture Instructions: ED Contusion, Lower Extremity Prescriptions: No Action promethazine 25 MG tablet 25 mg PO Q6H PRN PRN (Reason: nausea and/or vomiting) Qty: 12 0RF amoxicillin 500 MG tablet 500 mg PO TID Qty: 30 0RF prednisone 20 mg tablet 40 mg PO DAILY Qty: 8 0RF omeprazole 40 mg capsule,delayed release(DR/EC) 40 mg PO DAILY 28 Days Qty: 28 0RF Primary Care Provider: Yanira Onofre Referrals: Yanira Onofre MD [Primary Care Provider] - Leonides Champagne MD [Med Staff - Active Staff] - 1 Week if not improving Activity Restrictions/Additional Instructions: X-ray looks good. Knee contusion. Ice. Motrin and Tylenol for pain and inflammation. Follow-up with your orthopedic doctor, Dr. Leonides Champagne if not improving. Print Language: New Zealander Disposition Disposition: Home, Self Care
[2025-04-03 21:03] VITALS: BP 144/90; PULSE 93; RESP 18; TEMP 36.6; O2SAT 98
--- NOTE | 2025-04-03 21:03 | ED.RN ---
pt refused wt
== END 2025-04-03 21:09 | disposition home or self-care (01) ==
PROVIDERS: Emergency Provider Emergency Medicine; PCP Internal Medicine; Visit Provider Emergency Medicine
DX: S80.01XA Contusion of right knee, initial encounter (principal); W01.198A Fall on same level from slipping, tripping and stumbling with subsequent striking against other object, initial encounter; Y92.512 Supermarket, store or market as the place of occurrence of the external cause; Y99.0 Civilian activity done for income or pay; F17.210 Nicotine dependence, cigarettes, uncomplicated
CPT/HCPCS: 73564; 99282